=== PATIENT | male | born 1960 | race Caucasian/White ===

== ENCOUNTER 2017-05-27 14:12 | Emergency (ER) | payer OTHER, MEDICARE, MEDICAID ==
[~2017-05-27] VITALS: Ht 177.8 cm; Wt 64.0 kg
[2017-05-27 14:14] VITALS: BP 148/89
[2017-05-27] MEDS ORDERED: oxyCODONE/APAP (5/325 MG) 1 UDTAB TABLET PO ONE (14:30)
[2017-05-27] MEDS ORDERED: oxyCODONE/APAP (5/325 MG) 1 UDTAB TABLET ONE (14:55)
== END 2017-05-27 19:02 | disposition home or self-care (01) ==
LOC: ER 14:13
DX: M79.661 Pain in right lower leg (principal); M25.561 Pain in right knee; Z59.0 Homelessness
CPT/HCPCS: A4606; Z7610

== ENCOUNTER 2017-05-28 08:17 | Emergency (ER) | payer OTHER, MEDICARE, MEDICAID ==
[~2017-05-28] VITALS: Ht 177.8 cm; Wt 64.4 kg
[2017-05-28 08:18] VITALS: BP 121/70
--- NOTE | 2017-05-28 09:20 | NUR ---
called geriatric social worker [phone], no answer. will try again
[2017-05-28] MEDS ORDERED: IBUPROFEN 600 MG TABLET PO ONE ×2 (09:30→10:04)
--- NOTE | 2017-05-28 09:40 | NUR ---
Called social welfare administrator- no answer
--- NOTE | 2017-05-28 09:55 | NUR ---
Called social worker school- no answer
--- NOTE | 2017-05-28 10:08 | NUR ---
CALLED USER EXPERIENCE LEAD- ASHLI. SHE WILL COME TO SEE THE PT.
--- NOTE | 2017-05-28 10:15 | NUR ---
ASSISTANT PRINCIPAL AT BEDSIDE
--- NOTE | 2017-05-28 15:43 | NUR ---
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 Pt is a 57 year old male who was admitted to [facility] for pain/difficulty ambulating and medication evaluation. FRANC met with pt. bedside. Pt was alert and oriented x4. Patient has no emergency contact. Patient reported that he wanted to speak to the [employer] to find a place to sleep tonight. SW called [facility] ([address] [place] [id number] ), and [facility] ([address] [place] [address] ) who reported that they had no beds available. FRANC spoke to Nely at [facility] ([address] [place] [address]; ) who stated that there were beds available today and that patient would have to be in line by 2pm. FRANC spoke to Nursing Client Services Representative Hilda in regards to bus tokens for the pt. FRANC gave pt. Homeless Half-Way Resources including food lakhani: [facility] ([address] [place] [address]; ), [facility] ([address] [place] [address]; ), and [facility] ([address] [place] [address]; ). FRANC provided additional Homeless Half-Way resources: [facility] ([address] [place] [address]; ) and [facility] [place] [place] ([address] [place] [address]; ). FRANC gave pt. bus tokens and directions to [facility]. Pt. agreed to be discharged to [facility] ([address] [place] [address]; ) and signed Homeless pt. waiver. SW provided pt. with bus directions and pt. reported that he understood the directions. FRANC spoke with CATHLEEN Nova in regards to pt.s disposition and discharge plan. Plan: Pt. will be going to [facility] ([address] [place] [address]; ).
== END 2017-05-28 10:50 | disposition home or self-care (01) ==
LOC: ER 08:18
DX: M79.604 Pain in right leg (principal); M79.601 Pain in right arm; F17.200 Nicotine dependence, unspecified, uncomplicated; Z59.0 Homelessness; Z98.890 Other specified postprocedural states
CPT/HCPCS: 99283; A4606; Z7610

== ENCOUNTER 2017-06-03 15:05 | Emergency (ER) | payer MEDICARE, MEDICAID ==
[~2017-06-03] VITALS: Ht 177.8 cm; Wt 64.9 kg
[2017-06-03 15:18] VITALS: BP 107/65
[2017-06-03] MEDS ORDERED: IBUPROFEN 400 MG TABLET ONE (16:14)
[2017-06-03] MEDS: IBUPROFEN 400 MG TABLET PO ONE (16:16)
== END 2017-06-03 16:21 | disposition home or self-care (01) ==
LOC: ER 15:06
DX: M79.604 Pain in right leg (principal); G89.29 Other chronic pain; F17.200 Nicotine dependence, unspecified, uncomplicated
CPT/HCPCS: A4606; Z7610

== ENCOUNTER 2017-06-09 06:53 | Emergency (ER) | payer MEDICARE, MEDICAID ==
[~2017-06-09] VITALS: Ht 177.8 cm; Wt 68.0 kg
[2017-06-09 06:58] VITALS: BP 139/75
== END 2017-06-09 07:17 | disposition home or self-care (01) ==
LOC: ER 06:55
DX: M79.606 Pain in leg, unspecified (principal); G89.29 Other chronic pain; F17.200 Nicotine dependence, unspecified, uncomplicated
CPT/HCPCS: 99282; A4606; Z7610